=== PATIENT | male | born 1935 | race Caucasian/White ===

== ENCOUNTER 2017-07-30 12:34 | Inpatient (IN) | payer OTHER, MEDICARE ==
[2017-07-30] MEDS ORDERED: LR 1,000 ML IV ONE (12:50)
[2017-07-30] MEDS ORDERED: ceFAZolin 1 GM/5 ML SYR ONE (13:27)
[2017-07-30] MEDS ORDERED: DEXAMETHASONE 4 MG/ML VIAL IVP ONE (13:38)
[2017-07-30] MEDS ORDERED: GABAPENTIN 300 MG CAP PO ONE (13:38)
[2017-07-30] MEDS ORDERED: ROPIVACAINE 0.2% 80 MG, EPINEPHrine 0.2 MG, KETOROLAC TROMETHAMINE 30 MG in SYRINGE 0 ML IU ONE (13:38)
[2017-07-30] MEDS ORDERED: ceFAZolin 2 GM/SWFI 2 GM/20 ML SYR IVP ONE (13:38)
[2017-07-30] MEDS ORDERED: NS IV ONE (13:38)
[2017-07-30] MEDS ORDERED: FAMOTIDINE 20 MG TAB PO ONE (13:38)
[2017-07-30] MEDS ORDERED: POVIDONE-IODINE 20 ML in SODIUM CL IRRIG SOLUTION 500 ML IRR ONE (13:38)
[2017-07-30] MEDS ORDERED: ACETAMINOPHEN 325 MG TAB PO ONE (13:38)
[2017-07-30] MEDS ORDERED: ONDANSETRON 4 MG/2 ML VIAL IVP ONE (13:38)
[2017-07-30] MEDS ORDERED: TRANEXAMIC ACID IV ONE (13:38)
--- NOTE | 2017-07-30 14:11 | PDHPUP ---
History & Physical Update H&P update statement: This history and physical update is based on an assessment of the patient which was completed after admission or registration (within 24 hours), but prior to the surgery/procedure. H&P update: H&P reviewed & patient examined, no change in patient's condition since H&P completed
[2017-07-30] MEDS ORDERED: MIDAZOLAM 2 MG/2 ML VIAL IVP ONE (14:17)
--- NOTE | 2017-07-30 14:19 | PDANEPAE ---
ANE History of Present Illness RA s/f L KAMERON ANE Past Medical History - Cardiovascular History Hx Hypertension: Yes Hx Arrhythmias: No Hx Chest Pain: No Hx Coronary Artery / Peripheral Vascular Disease: No Hx CHF / Valvular Disease: No Hx Palpitations: No Cardiovascular History Comment: HYPERLIPIDEMIA - Pulmonary History Hx COPD: No Hx Asthma/Reactive Airway Disease: No Hx Recent Upper Respiratory Infection: No Hx Oxygen in Use at Home: No Hx Sleep Apnea: No Sleep Apnea Screening Result - Last Documented: Negative - Neurologic History Hx Cerebrovascular Accident: No Hx Seizures: No Hx Dementia: No Neurologic History Comment: TIA X2 FOLLOWING AFTER PREVIOUS SURGERY - Endocrine History Hx Diabetes: Yes Endocrine History Comment: PREDIAB - METFORMIN - Renal History Hx Renal Disorders: No - Liver History Hx Hepatic Disorders: No - Neurological & Psychiatric Hx Hx Neurological and Psychiatric Disorders: No - Cancer History Hx Cancer: Yes Cancer History Comment: ANAL CANCER. COLOSTOMY - Congenital Disorder History Hx Congenital Disorders: No - GI History Hx Gastrointestinal Disorders: No - Other Health History Other Health History: NEG - Chronic Pain History Chronic Pain: Yes (CHARCOT FOOT) - Surgical History Prior Surgeries: MALIKA TKA. R KAMERON. R SHOULDER REPLACEMENT. COLOSTOMY - ANAL CANCER ANE Review of Systems Review of Systems: - Exercise capacity METS (RN): 2 METS ANE Patient History - Allergies Allergies/Adverse Reactions: No Known Allergies Allergy (Unverified 07/25/10 21:50) - Home Medications Home Medications: Acetaminophen [Tylenol ES 500 mg (*)] 1,000 mg PO TID 07/30/17 [Last Taken 07/29] Allopurinol [Allopurinol 300 MG (RX)] 150 mg PO HS 07/30/17 [Last Taken 07/29/17 ] Aspirin [Aspirin 81mg (*)] 81 mg PO DAILY 07/30/17 [Last Taken 07/24/17] Atorvastatin Calcium [Lipitor 40 mg (*)] 40 mg PO HS 07/30/17 [Last Taken ] C,E,Zinc,Copper 11/Bdwcy0n/Lut [Ocuvite Adult 50 Plus Softgel] 1 each PO DAILY 07/30/17 [Last Taken 07/28/17] Cholecalciferol Vit D3 [Vitamin D3 (*)] 2,000 units PO DAILY 07/30/17 [Last Taken 07/28/17] Furosemide [Lasix 20 MG (*)] 20 mg PO DAILY 07/30/17 [Last Taken 07/29/17] Herbals/Supplements -Info Only 1 ea PO DAILY 07/30/17 [Last Taken Unknown] Lisinopril [Zestril 10 mg (*)] 30 mg PO DAILY 07/30/17 [Last Taken 07/29/17] Loperamide HCl [Imodium 2 mg (*)] 2 mg PO PRN PRN 07/30/17 [Last Taken Unknown] Metoprolol Succinate Xr [Toprol Xl 50 mg (*)] 50 mg PO DAILY 07/30/17 [Last Taken 07/30/17] Multivitamins [Multivitamin (*)] 1 each PO DAILY 07/30/17 [Last Taken 07/29/17] [place]-3 Fatty Acids [Fish Oil 1000 mg (*)] 1,000 mg PO DAILY 07/30/17 [Last Taken 07/24/17] Ondansetron Odt [Zofran Odt 4 mg (*)] 4 mg PO Q4 PRN 07/30/17 [Last Taken Unknown] Potassium Cl [Klor-Con 20 meq (*)] 20 meq PO BID 07/30/17 [Last Taken 07/29/17] celeCOXIB [Celebrex (*)] 200 mg PO HS 07/30/17 [Last Taken 07/29/17] metFORMIN HCL [Metformin HCl] 500 mg PO BID 07/30/17 [Last Taken 07/29/17] traMADol HCL [Tramadol HCl] 50 mg PO BID 07/30/17 [Last Taken 07/29/17] - NPO status NPO Since - Liquids (Date): 07/30/17 NPO Since - Liquids (Time): 09:00 NPO Since - Solids (Date): 07/29/17 NPO Since - Solids (Time): 20:00 - Smoking Hx Smoking Status: Never smoked ANE Labs/Vital Signs - Labs - CBC WBC: reviewed - Vital Signs Height: 177.8 cm Weight: 79.379 kg ANE Physical Exam - Airway Neck exam: decreased ROM Mallampati Score: Class 2 Mouth exam: small mouth opening - Pulmonary Pulmonary: no respiratory distress - Cardiovascular Cardiovascular: regular rate and rhythym - ASA Status ASA Status: III ANE Anesthesia Plan Anesthesia Plan: GA w LMA (R/B/A explained and pt. agrees to proceed), spinal
[2017-07-30] MEDS ORDERED: fentaNYL 100 MCG/2 ML INJ ONE (14:33)
[2017-07-30] MEDS ORDERED: PROPOFOL/EMULSION 500 MG/50 ML BOTTLE IV ONE (14:33)
[2017-07-30] MEDS ORDERED: LIDOCAINE 2% JELLY 5 ML TUBE ONE (14:50)
[2017-07-30] MEDS ORDERED: MEPERIDINE 25 MG/ML SYR IVP PRN (16:31)
[2017-07-30] MEDS ORDERED: ALBUTEROL 3 ML DEYVIAL IH PRN (16:31)
[2017-07-30] MEDS ORDERED: NALOXONE HCL 0.4 MG/ML INJ IVP PRN (16:31)
[2017-07-30] MEDS ORDERED: LR 500 ML IV PRN (16:31)
[2017-07-30] MEDS ORDERED: ONDANSETRON 4 MG/2 ML VIAL IVP PRN ×2 (16:31→16:47)
[2017-07-30] MEDS ORDERED: METOCLOPRAMIDE 10 MG/2 ML VIAL IVP PRN ×2 (16:31→16:47)
[2017-07-30] MEDS ORDERED: ACETAMINOPHEN 500 MG TAB PO PRN (16:31)
[2017-07-30] MEDS ORDERED: HYDROCODONE/APAP 5/325 TAB PO PRN (16:31)
[2017-07-30] MEDS ORDERED: LABETALOL HCL 5 MG/ML 20 ML MDV IVP PRN (16:31)
[2017-07-30] MEDS ORDERED: PROMETHAZINE HCL 25 MG/ML INJ IVP PRN ×2 (16:31→16:47)
[2017-07-30] MEDS ORDERED: DEXAMETHASONE 4 MG/ML VIAL IVP PRN (16:31)
[2017-07-30] MEDS ORDERED: fentaNYL 100 MCG/2 ML INJ IVP PRN (16:31)
[2017-07-30] MEDS ORDERED: PHENYLEPHRINE HCL 100 MCG/ML SYR IVP PRN (16:31)
[2017-07-30] MEDS ORDERED: OXYCODONE/APAP 5/325 TAB PO PRN (16:31)
[2017-07-30] MEDS ORDERED: ONDANSETRON 4 MG/2 ML VIAL ONE (16:34)
--- NOTE | 2017-07-30 16:35 | POSTOPPROG ---
Post Op Note Date of Operation: 07/30/17 Surgeon: Derrell Newby Schedule Manager: Vnaessa Anesthesiologist: Dr. Von Mercedes Anesthesia: GET(General Endotracheal) Post-op Diagnosis: Left hip severe arthritis Procedure: Hip arthroplasty Inf/Abcess present in the surg proc area at time of surgery?: No EBL: [id number]
[2017-07-30] MEDS ORDERED: LACTULOSE 20 GM/30 ML UDCUP PO PRN (16:47)
[2017-07-30] MEDS ORDERED: BISACODYL 10 MG SUPP PR PRN (16:47)
[2017-07-30] MEDS ORDERED: traMADol 50 MG TAB PO PRN (16:47)
[2017-07-30] MEDS ORDERED: POLYETHYLENE GLYCOL 3350 17 GM PKT PO PRN (16:47)
[2017-07-30] MEDS ORDERED: TEMAZEPAM 15 MG CAP PO PRN (16:47)
[2017-07-30] MEDS ORDERED: ONDANSETRON DISINTEGRATING 4 MG TAB PO PRN (16:47)
[2017-07-30] MEDS ORDERED: diphenhydrAMINE 25 MG CAP PO PRN (16:47)
[2017-07-30] MEDS ORDERED: MAGNESIUM HYDROXIDE 30 ML UDCUP PO PRN (16:47)
[2017-07-30] MEDS ORDERED: PROMETHAZINE HCL 25 MG SUPPR PR PRN (16:47)
[2017-07-30] MEDS ORDERED: oxyCODONE IR 5 MG TAB PO PRN (16:47)
[2017-07-30] MEDS ORDERED: KETOROLAC 30 MG/1 ML SDV IVP PRN (16:47)
[2017-07-30] MEDS ORDERED: NS 500 ML IV PRN (16:47)
[2017-07-30] MEDS ORDERED: CYCLOBENZAPRINE 10 MG TAB PO PRN (16:47)
[2017-07-30] MEDS ORDERED: DIPHENOXYLATE/ATROPINE LOMOTIL 1 TAB PO PRN (16:47)
[2017-07-30] MEDS ORDERED: LR 1,000 ML IV SCH (17:00)
--- NOTE | 2017-07-30 17:16 | GOP ---
[f rep st] OPERATIVE REPORT DATE OF OPERATION: 07/30/2017 SURGEON: Derrell Newby MD RN CARE TRANSITION: Toby Shore and James Kramer. ANESTHESIA: General anesthesia by Dr. Von Mercedes. PREOPERATIVE DIAGNOSIS: Left hip degenerative arthritis/possible old femoral neck fracture. POSTOPERATIVE DIAGNOSIS: Left hip degenerative arthritis/possible old femoral neck fracture. PROCEDURE PERFORMED: Left total hip arthroplasty, ceramic femoral head on highly cross-linked polyet hylene cup liner. FINDINGS: DESCRIPTION OF PROCEDURE: The patient was given 2 g of preoperative IV Ancef within 60 minutes of barrientos rgery. He also received IV tranexamic acid at a dose of 20 mg/kg. He was placed on the operating ro om table and given general anesthesia by Dr. Mercedes. A Gtz catheter was not used. He wore a CARLIE st ocking and SCD on the nonoperative leg. He was rolled to the right lateral decubitus position. The position was secured with the pegboard table attachment. He had a left lower quadrant colostomy and colostomy bag. He also had a large left lower quadrant ventral abdominal hernia. His perineum and t he colostomy were isolated with plastic adhesive drapes. I had to make special modifications in the draping in order to accommodate the colostomy and the large ventral abdominal hernia. His left lower extremity and hip were draped free using sterile sheets, stockinette, and Ioban plastic drapes. The World Health Organization time-out was performed to verify the correct surgical side and site, an d the correct patient identity. The [place] time-out was also performed. I made a 5-inch straight oblique posterolateral hip skin incision. He was very thin and had a thin l deidre of subcutaneous fat. Subcutaneous tissues were sharply divided and hemostasis was obtained usin g electrocautery. The fascia justine was identified and split along the axis of its fibers. I curved p osteriorly and proximally, and split the fascia of the gluteus cici and bluntly split the muscle f ibers in line with their orientation. The Charnley self-retaining retractor was inserted. His sciat ic nerve was located, partially exposed, and protected throughout the procedure. The external rotato rs and the posterior hip capsule were divided as separate layers at the base of the femoral neck, tag ged, and reflected posteriorly. A smooth 8-inch Steinmann pin was inserted vertically into the ilium , superior to the acetabulum. A 1/8-inch drill bit was inserted vertically into the greater trochant er and parallel to the first pin. The distance between the two was measured for leg length reference . The hip was dislocated posteriorly. He had no remaining femoral head left. He had ground the fem oral head down to the subcapital portion of his femoral neck. I osteotomized the femoral neck at the appropriate level and inclination. I was careful to preserve all the posterior capsule and most of the anterior capsule. The remnant of his damaged labrum was excised. The femur was prepared first. This allowed me to dressage judge the amount of natural femoral neck anteversio n. He only had about 10 degrees of natural femoral neck anteversion. The canal was opened laterally with a box chisel. I used the power reamer and then hand broached up to a size 8. I used the Accol sherrie II stem with a standard offset in size 8 broach as a trial stem. I was careful to lateralize sherrie quately. Appropriate retractors were inserted to expose the acetabulum. There was a lot of ground up bone med ial in the acetabulum. There was a small remaining fragment of his femoral head which was about 4 cm long and perhaps 1.5 cm in width at its widest diameter. His inferior capsule was severely contract ed. Without his femoral head, the whole proximal femur had shortened by about 25 mm. His acetabulum was reamed sequentially up to 57 mm. I selected a 58 mm Kennerdell Tritanium cluster hole hemispherica l shell. This was tapped securely into place in the proper degree of inclination anteversion. I use d the remnant of his transverse acetabular ligament and other acetabular bony landmarks to help me pr operly orient the cup. 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 I inserted 3 screws into the ilium through the acetabular shell. Screw fixation was excellent. I performed a series of trial reductions to determine length and stability. I took an intraoperative cross-table AP pelvis x-ray. The x-ray showed good position of the acetabular component and good si zing and position of the femoral component. His leg lengths were close to equal. The 0 degree Yovani X3 highly cross-linked polyethylene liner was inserted and tapped securely into place. Prior to insertion, I inserted and tightened a metal dome hole cap. I then selected the Stry ker Accolade II stem in a size 8 with standard offset. This was inserted press-fit and was very tigh t. I did one final trial reduction and confirmed that the 0 neck length with the 36 mm head was the proper combination. The Yovani Biolox Delta ceramic head with an outside diameter 36 mm and a neck length of 0 mm was tapped securely onto the clean trunnion. The acetabulum was irrigated and cleaned . The hip was reduced one final time. He had excellent anterior and posterior stability and an appr opriate amount of lengthening. 40 mL of the joint anesthetic cocktail were injected into the capsule, the deep musculature, and the subcutaneous tissues along the skin edges. The joint was thoroughly irrigated one final time with a dilute Betadine solution. His sciatic nerve was reinspected and looked unharmed. It did not look li ke it was on excessive tension. The external rotators and the posterior hip capsule were repaired in separate layers with #2 FiberWire sutures through drill holes in the greater trochanter. This provi ded a very strong posterior capsular and external rotator repair. The fascia justine was closed first w ith two [id number] #2 FiberWire sutures followed by a running #2 barbed Ethicon Stratafix PDO barrientos ture. Subcutaneous tissues were closed with a running 0 barbed Ethicon Stratafix Monoderm suture. T he skin was closed with a running 3-0 barbed Ethicon Stratafix Monoderm subcuticular suture. The ski n edges were reapproximated and sealed with Dermabond glue. The wound was covered with a large Mepil ex waterproof dressing. A long-leg CARLIE stocking and SCD were applied to his left lower extremity. An abduction pillow was pl aced between the knees. He was awakened from anesthesia and rolled to the supine position on his [facility] gurney. He was taken to PACU in satisfactory condition. There were no recognized intraoperati ve complications. The estimated blood loss was about 500 mL. Sponge and needle count were correct on 2 occasions. I used a Kennerdell Tritanium hemispherical cluster hole acetabular shell with an outside diameter of 58 mm. The liner was a Kennerdell X3 0-degree highly cross-linked liner with an inside diameter of 36 mm. There were 3 supplemental fixation screws in the acetabulum. The femoral component was a standard offset Accolade II stem in a size 8 and press-fit. The femoral head was a Yovani Biolox Delta ceram ic head with a 0 neck length and a 36 mm outside diameter. Toby Shore and James Kramer acted as surgical assistants. Their assistance was a medical necess ity for safe completion of the procedure. /[id number]/MODL
[2017-07-30] MEDS: ceFAZolin 2 GM/SWFI 2 GM/20 ML SYR IVP SCH ×3 (18:08→21:20)
--- NOTE | 2017-07-30 18:15 | POSTANESTH ---
Post Anesthetic Evaluation Cardiovascular Status: Normal, Stable Respiratory Status: Normal, Stable Level of Consciousness/Mental Status: Can Participate in Eval Pain Control: Adequate, Prn Tx Ordered Nausea/Vomiting Control: Adequate, Prn Tx Ordered Complications Possibly Related to Anesthesia: None Noted
[2017-07-30] MEDS: ACETAMINOPHEN 325 MG TAB PO SCH ×2 (19:35→23:08)
[2017-07-30] MEDS ORDERED: ASPIRIN 325 MG TAB PO SCH (21:00)
[2017-07-30] MEDS: ATORVASTATIN CALCIUM 40 MG TAB PO SCH (21:20)
[2017-07-30] MEDS: TRANEXAMIC ACID 650 MG TAB PO SCH (21:20)
[2017-07-30] MEDS: ALLOPURINOL 300 MG TAB PO SCH (21:21)
[2017-07-30] MEDS: SENNOSIDES/DOCUSATE SODIUM TAB PO SCH (21:21)
[2017-07-30] MEDS: POTASSIUM CL 20 MEQ TAB PO SCH (21:21)
[2017-07-30] MEDS: FAMOTIDINE 20 MG TAB PO SCH (21:21)
[2017-07-30] MEDS: metFORMIN HCL 500 MG TAB PO SCH (21:22)
[2017-07-30] MEDS ORDERED: ceFAZolin 2 GM/DEXTROSE 100 ML IV SCH (22:00)
[2017-07-31] MEDS: ACETAMINOPHEN 325 MG TAB PO SCH ×3 (05:22→18:00)
[2017-07-31] MEDS: TRANEXAMIC ACID 650 MG TAB PO SCH ×2 (05:22→14:09)
[2017-07-31] MEDS: ceFAZolin 2 GM/SWFI 2 GM/20 ML SYR IVP SCH (05:23)
--- NOTE | 2017-07-31 07:17 | SOAPPROG ---
SOAP Progress Note Assessment/Plan: Assessment: Afebrile. Awake and alert. Mild hypotension. H/H is adequate. Dsg is dry. Sciatic nerve intact. Films look good. Plan:Up with PT. Rehab will be slow. He hasn't walked in 3 or 4 weeks. SNF transfer. 07/31/17 07:13 Objective: Vital Signs Temp Pulse Resp BP Pulse Ox 36.3 C 58 L 16 91/43 L 100 07/31/17 07:08 07/31/17 07:08 07/31/17 07:08 07/31/17 07:08 07/31/17 07:08 Laboratory Results 07/31/17 04:19 07/30/17 07/31/17 08/01/17 05:59 05:59 05:59 Intake Total 2535 Output Total 700 Balance 1835 ICD10 Worksheet Patient Problems: Problems Problem Status Onset Osteoarthritis of left hip Acute
--- NOTE | 2017-07-31 07:22 | SOAPPROG ---
SOAP Progress Note Assessment/Plan: Assessment: Afebrile. Awake and alert. Mild hypotension. H/H is adequate. Dsg is dry. Sciatic nerve intact. Films look good. Plan:Up with PT. Rehab will be slow. He hasn't walked in 3 or 4 weeks. SNF transfer. 07/31/17 07:13 07/31/17 07:22 Pt will be slow to mobilize. He is higher risk for DVT. Will treat with Lovenox for 21 days. Objective: Vital Signs Temp Pulse Resp BP Pulse Ox 36.3 C 58 L 16 91/43 L 100 07/31/17 07:08 07/31/17 07:08 07/31/17 07:08 07/31/17 07:08 07/31/17 07:08 Laboratory Results 07/31/17 04:19 07/30/17 07/31/17 08/01/17 05:59 05:59 05:59 Intake Total 2535 Output Total 700 Balance 1835 ICD10 Worksheet Patient Problems: Problems Problem Status Onset Osteoarthritis of left hip Acute
--- NOTE | 2017-07-31 07:22 | PDIAF ---
<Eb Shore - Last Filed: 07/31/17 07:20> - Diagnosis Diagnosis: left hip OA Code Status: Full Code - Medication Management Discharge Medications: Medications to Continue on Transfer Allopurinol [Allopurinol 300 MG (RX)] 150 mg PO HS 07/30/17 [Last Taken 07/29/17 ] Atorvastatin Calcium [Lipitor 40 mg (*)] 40 mg PO HS 07/30/17 [Last Taken ] C,E,Zinc,Copper 11/Whlwk2a/Lut [Ocuvite Adult 50 Plus Softgel] 1 each PO DAILY 07/30/17 [Last Taken 07/28/17] Cholecalciferol Vit D3 [Vitamin D3 (*)] 2,000 units PO DAILY 07/30/17 [Last Taken 07/28/17] Furosemide [Lasix 20 MG (*)] 20 mg PO DAILY 07/30/17 [Last Taken 07/29/17] Herbals/Supplements -Info Only 1 ea PO DAILY 07/30/17 [Last Taken Unknown] Lisinopril [Zestril 10 mg (*)] 30 mg PO DAILY 07/30/17 [Last Taken 07/29/17] Loperamide HCl [Imodium 2 mg (*)] 2 mg PO PRN PRN 07/30/17 [Last Taken Unknown] Metoprolol Succinate Xr [Toprol Xl 50 mg (*)] 50 mg PO DAILY 07/30/17 [Last Taken 07/30/17] Multivitamins [Multivitamin (*)] 1 each PO DAILY 07/30/17 [Last Taken 07/29/17] [place]-3 Fatty Acids [Fish Oil 1000 mg (*)] 1,000 mg PO DAILY 07/30/17 [Last Taken 07/24/17] Potassium Cl [Klor-Con 20 meq (*)] 20 meq PO BID 07/30/17 [Last Taken 07/29/17] metFORMIN HCL [Metformin HCl] 500 mg PO BID 07/30/17 [Last Taken 07/29/17] Acetaminophen [Tylenol 325mg (*)] 650 mg PO Q6HRS tab 07/31/17 [Last Taken Unknown] Enoxaparin [Lovenox 40 MG (*)] 40 mg SC DAILY 21 Days syr 07/31/17 [Last Taken Unknown] Ondansetron Odt [Zofran Odt 4 mg (*)] 4 mg PO Q4HRS PRN tab 07/31/17 [Last Taken Unknown] celeCOXIB [Celebrex (*)] 200 mg PO DAILY #21 cap 07/31/17 [Last Taken Unknown] traMADol [Ultram 50 mg (*)] 50 mg PO Q6HRS PRN tab 07/31/17 [Last Taken Unknown ] Discharge Medications: Refer to the Discharge Home Medication list for PRN reason. - Orders Services needed: Physical Therapy, Occupational Therapy Isolation Type: None Diet Recommendation: no restrictions on diet Diet Texture: Regular Texture Diet Gtz: Not applicable Jourdan Stockings Discontinue Date: 1 week Wound Care Instructions: keep clean and dry. You may shower. Activity/Weight Bearing Restrictions: as tolerated. - Follow Up Care Current Providers and Referrals: QUEENIE LOVING [Primary Care Provider] - Derrell Newby MD [Medical Doctor] - 08/18/17 <Derrell Newby - Last Filed: 08/02/17 07:54> - Medication Management Discharge Medications: Refer to the Discharge Home Medication list for PRN reason.
--- NOTE | 2017-07-31 07:38 | PDIAF ---
- Diagnosis Diagnosis: left hip OA Code Status: Full Code - Medication Management Discharge Medications: Medications to Continue on Transfer Allopurinol [Allopurinol 300 MG (RX)] 150 mg PO HS 07/30/17 [Last Taken 07/29/17 ] Atorvastatin Calcium [Lipitor 40 mg (*)] 40 mg PO HS 07/30/17 [Last Taken ] C,E,Zinc,Copper 11/Zajzi9q/Lut [Ocuvite Adult 50 Plus Softgel] 1 each PO DAILY 07/30/17 [Last Taken 07/28/17] Cholecalciferol Vit D3 [Vitamin D3 (*)] 2,000 units PO DAILY 07/30/17 [Last Taken 07/28/17] Furosemide [Lasix 20 MG (*)] 20 mg PO DAILY 07/30/17 [Last Taken 07/29/17] Herbals/Supplements -Info Only 1 ea PO DAILY 07/30/17 [Last Taken Unknown] Lisinopril [Zestril 10 mg (*)] 30 mg PO DAILY 07/30/17 [Last Taken 07/29/17] Loperamide HCl [Imodium 2 mg (*)] 2 mg PO PRN PRN 07/30/17 [Last Taken Unknown] Metoprolol Succinate Xr [Toprol Xl 50 mg (*)] 50 mg PO DAILY 07/30/17 [Last Taken 07/30/17] Multivitamins [Multivitamin (*)] 1 each PO DAILY 07/30/17 [Last Taken 07/29/17] [place]-3 Fatty Acids [Fish Oil 1000 mg (*)] 1,000 mg PO DAILY 07/30/17 [Last Taken 07/24/17] Potassium Cl [Klor-Con 20 meq (*)] 20 meq PO BID 07/30/17 [Last Taken 07/29/17] metFORMIN HCL [Metformin HCl] 500 mg PO BID 07/30/17 [Last Taken 07/29/17] Acetaminophen [Tylenol 325mg (*)] 650 mg PO Q6HRS tab 07/31/17 [Last Taken Unknown] Aspirin [Aspirin 325 mg (*)] 325 mg PO DAILY #21 tab 07/31/17 [Last Taken Unknown] Enoxaparin [Lovenox 40 MG (*)] 40 mg SC DAILY 21 Days syr 07/31/17 [Last Taken Unknown] Ondansetron Odt [Zofran Odt 4 mg (*)] 4 mg PO Q4HRS PRN tab 07/31/17 [Last Taken Unknown] celeCOXIB [Celebrex (*)] 200 mg PO DAILY #21 cap 07/31/17 [Last Taken Unknown] oxyCODONE IR [Oxycodone Ir (*)] 5 - 10 mg PO Q3HRS PRN tab 07/31/17 [Last Taken Unknown] traMADol [Ultram 50 mg (*)] 50 mg PO Q6HRS PRN tab 07/31/17 [Last Taken Unknown ] Discharge Medications: Refer to the Discharge Home Medication list for PRN reason. - Orders Services needed: Physical Therapy, Occupational Therapy Isolation Type: None Diet Recommendation: no restrictions on diet Diet Texture: Regular Texture Diet Gtz: Not applicable Jourdan Stockings Discontinue Date: 1 week Wound Care Instructions: keep clean and dry. You may shower. Activity/Weight Bearing Restrictions: as tolerated. Additional: Lovenox daily for DVT prophylaxis. - Follow Up Care Current Providers and Referrals: QUEENIE LOVING [Primary Care Provider] - Derrell Newby MD [Medical Doctor] - 08/18/17
[2017-07-31] MEDS ORDERED: METOPROLOL SUCCINATE XR 50 MG TAB PO SCH (09:00)
[2017-07-31] MEDS ORDERED: LISINOPRIL 10 MG TAB PO SCH (09:00)
[2017-07-31] MEDS ORDERED: FUROSEMIDE 20 MG TAB PO SCH (09:00)
--- NOTE | 2017-07-31 09:04 | GDS ---
[f rep st] DISCHARGE SUMMARY ADMISSION DIAGNOSIS: Left hip severe degenerative arthritis. DISCHARGE DIAGNOSIS: Left hip severe degenerative arthritis. OPERATION PERFORMED: On 07/30/2017, a left total hip arthroplasty. POSTOPERATIVE COMPLICATIONS: None. CONDITION ON DISCHARGE: Improved. DESCRIPTION OF HOSPITAL COURSE: The patient was admitted to the hospital on the morning of surgery. The same day, under general anesthesia, he underwent a left total hip arthroplasty. Postoperatively, he was treated with multimodal DVT prophylaxis, including Lovenox. He was seen by Physical Therapy. His progress with mobilization was slow. He has not been walking for the last 3 or 4 weeks, and overall he is quite weak. On the 1st postoperative day, his hemoglobin and hematocrit were 11.9 and 35.5. He did not require transfusion. To meet Medicare requirements, he had to stay 3 nights. He received additional PT. He was walking in [place] by time of discharge. DISPOSITION: The patient is discharged to a skilled rehab facility. I anticipate a long rehabilitation. He may progress to full weightbearing on the left as tolerated. Use an abduction pillow in bed for 3 weeks. Use CARLIE stockings for 1 week. Continue Lovenox 40 mgs daily for 21 days. I will see him back in the office on 08/18/2017. If there any problems, he is to call me at the office. /[id number]/MODL MTDD
--- NOTE | 2017-07-31 09:45 | ASMTCMCOM ---
CM Note CM Note Notes: Pt came to [facility] from [facility] where he was private paying since 07/20/17. Referral sent to [facility] in [place]. Pt s/p total hip, will d/c [facility]. Date Signed: 07/31/2017 09:45 AM Electronically Signed By:LILIBETH Olson
[2017-07-31] MEDS: POTASSIUM CL 20 MEQ TAB PO SCH ×2 (09:56→20:25)
[2017-07-31] MEDS: FAMOTIDINE 20 MG TAB PO SCH ×2 (09:56→20:25)
[2017-07-31] MEDS: ENOXAPARIN 40 MG/0.4 ML SYR SC SCH (10:00)
[2017-07-31] MEDS: metFORMIN HCL 500 MG TAB PO SCH ×2 (10:01→20:26)
[2017-07-31] MEDS: SENNOSIDES/DOCUSATE SODIUM TAB PO SCH ×2 (10:02→20:26)
[2017-07-31] MEDS: ATORVASTATIN CALCIUM 40 MG TAB PO SCH (20:24)
[2017-07-31] MEDS: ALLOPURINOL 300 MG TAB PO SCH (20:25)
[2017-08-01] MEDS: ACETAMINOPHEN 325 MG TAB PO SCH ×4 (02:15→17:59)
--- NOTE | 2017-08-01 07:24 | SOAPPROG ---
SOAP Progress Note Assessment/Plan: Assessment: Afebrile. Awake and alert. Mild hypotension. H/H is adequate. Dsg is dry. Sciatic nerve intact. Films look good. Plan:Up with PT. Rehab will be slow. He hasn't walked in 3 or 4 weeks. SNF transfer. 07/31/17 07:13 07/31/17 07:22 Pt will be slow to mobilize. He is higher risk for DVT. Will treat with Lovenox for 21 days. 08/01/17 07:21 Aferile. Awake and alert. Has been up in chair and taking a few steps around the room. Mild pain. Dsg is dry. H/H is stable and OK. On lovenox. BP was low yesterday and I held his BP meds. BP better today. Needs another night in hospital to be eligible for SNF. P: DC Sat. Objective: Vital Signs Temp Pulse Resp BP Pulse Ox 36.8 C 73 16 115/66 97 08/01/17 04:00 08/01/17 04:00 08/01/17 04:00 08/01/17 04:00 08/01/17 04:00 Laboratory Results 08/01/17 04:18 07/31/17 08/01/17 08/02/17 05:59 05:59 05:59 Intake Total 2535 300 Output Total 700 300 Balance 1835 0 ICD10 Worksheet Patient Problems: Problems Problem Status Onset Osteoarthritis of left hip Acute chronic disease [facility]/Transitonal care Acute
[2017-08-01] MEDS: POTASSIUM CL 20 MEQ TAB PO SCH ×2 (08:35→20:41)
[2017-08-01] MEDS: SENNOSIDES/DOCUSATE SODIUM TAB PO SCH ×2 (08:36→20:45)
[2017-08-01] MEDS: FAMOTIDINE 20 MG TAB PO SCH ×2 (08:37→20:41)
[2017-08-01] MEDS: ENOXAPARIN 40 MG/0.4 ML SYR SC SCH (08:37)
[2017-08-01] MEDS: metFORMIN HCL 500 MG TAB PO SCH ×2 (08:39→20:45)
--- NOTE | 2017-08-01 15:06 | ASMTCMCOM ---
CM Note CM Note Notes: Plan remains d/c to [facility] tomorrow. Pt and family updated. [facility] can arrange wc van transport once d/c orders are in. Date Signed: 08/01/2017 03:05 PM Electronically Signed By:LILIBETH Olson
[2017-08-01] MEDS: ATORVASTATIN CALCIUM 40 MG TAB PO SCH (20:41)
[2017-08-01] MEDS: ALLOPURINOL 300 MG TAB PO SCH (20:44)
[2017-08-02 00:05] VITALS: RESP 18
[2017-08-02] MEDS: ACETAMINOPHEN 325 MG TAB PO SCH ×2 (00:09→05:40)
--- NOTE | 2017-08-02 07:46 | SOAPPROG ---
SOAP Progress Note Assessment/Plan: Assessment: Afebrile. Awake and alert. Mild hypotension. H/H is adequate. Dsg is dry. Sciatic nerve intact. Films look good. Plan:Up with PT. Rehab will be slow. He hasn't walked in 3 or 4 weeks. SNF transfer. 07/31/17 07:13 07/31/17 07:22 Pt will be slow to mobilize. He is higher risk for DVT. Will treat with Lovenox for 21 days. 08/01/17 07:21 Aferile. Awake and alert. Has been up in chair and taking a few steps around the room. Mild pain. Dsg is dry. H/H is stable and OK. On lovenox. BP was low yesterday and I held his BP meds. BP better today. Needs another night in hospital to be eligible for SNF. P: DC 08/02/17 07:46 Afebrile. No pain. Up and walking in [place]. Dsg is dry. Mild swelling. Transfer to SNF today. Objective: Vital Signs Temp Pulse Resp BP Pulse Ox 36.7 C 93 18 131/74 H 97 08/02/17 00:00 08/02/17 00:00 08/02/17 00:00 08/02/17 00:00 08/02/17 00:00 Laboratory Results 08/01/17 04:18 08/01/17 08/02/17 08/03/17 05:59 05:59 05:59 Intake Total 300 Output Total 300 1225 Balance 0 -1225 ICD10 Worksheet Patient Problems: Problems Problem Status Onset Osteoarthritis of left hip Acute chronic disease [facility]/Transitonal care Acute
[2017-08-02 08:21] VITALS: BP 126/99; PULSE 102; TEMP 97.6; O2SAT 91
[2017-08-02] MEDS: FAMOTIDINE 20 MG TAB PO SCH (10:15)
[2017-08-02] MEDS: metFORMIN HCL 500 MG TAB PO SCH (10:15)
[2017-08-02] MEDS: POTASSIUM CL 20 MEQ TAB PO SCH (10:15)
[2017-08-02] MEDS: ENOXAPARIN 40 MG/0.4 ML SYR SC SCH (10:15)
[2017-08-02] MEDS: SENNOSIDES/DOCUSATE SODIUM TAB PO SCH ×2 (10:16)
--- NOTE | 2017-08-02 10:33 | ASMTCMCOM ---
CM Note CM Note Notes: Chart reviewed . Patient medically cleared for discharge back to [facility] in [place]. Spoke to [facility] at [place] and they are ready to accept patient. They have arranged pickup for 11 am. Patient aware. RN aware. CM available should other needs arise. Date Signed: 08/02/2017 10:32 AM Electronically Signed By:Raeann Zavala RN
--- NOTE | 2017-08-02 13:34 | ASDISCHSUM ---
Discharge Information Plan Status:SNF Medically Cleared to Leave:08/01/2017 Discharge Date:08/02/2017 11:13 AM CM D/C Disposition: ADT D/C Disposition:Custodial Facility Projected Discharge Date:08/02/2017 11:00 AM Transportation at D/C:Wheelchair Van Discharge Delay Reason: Follow-Up Date:08/02/2017 11:00 AM Discharge Slot: Final Diagnosis: Placement Information Referral Type:*Snf/SNF Referral ID:[id number] Provider Name:[facility] Address 1:[address] [place] [address] Address 2: City:[place] Selection Factors: State:[place] Patient Contact Information Contact Name:PAYTON Relationship: Address:[address] City:[place] Alternate Phone: State/Zip Code:[place] [address] Email: Financial Information Financial Class:Medicare Primary Plan Desc:MEDICARE INPATIENT Primary Plan Number:[id number] Secondary Plan Desc:[employer]/MDR SUPPLEMENT Secondary Plan Number:[id number] Assessment Information [facility] CM Progress Note CM Note CM Note Notes: Pt came to [facility] from [facility] where he was private paying since 07/20/17. [facility]. Pt s/p total hip, will d/c [facility]. Date Signed: 07/31/2017 09:45 AM Electronically Signed By:LILIBETH Olson [facility] CM Progress Note CM Note CM Note Notes: Plan remains d/c to [facility] tomorrow. Pt and family updated. [facility] can arrange wc van transport once d/c orders are in. Date Signed: 08/01/2017 03:05 PM Electronically Signed By:LILIBETH Olson Case Management Discharge Plan Note Case Management Discharge Discharge Order Complete? Answers: Yes Patient to Obtain Answers: Other Notes: [facility] Medications Transportation Arranged Answers: Other Notes: wheelchair van Faxed Final Orders Answers: Yes Agency/Facility Transfer Answers: Yes Notes: [facility] Report Printed & Faxed to Receiving Agency Family Notified Answers: Yes Date Signed: 08/02/2017 09:22 AM Electronically Signed By:Raeann Zavala RN [facility] CM Progress Note CM Note CM Note Notes: Chart reviewed . Patient medically cleared for discharge back to [facility] in [place]. Spoke to Lakisha keyes at [place] and they are ready to accept patient. They have arranged pickup for 11 am. Patient aware. RN aware. CM available should other needs arise. Date Signed: 08/02/2017 10:32 AM Electronically Signed By:Raeann Zavala RN Intervention Information
== END 2017-08-02 11:13 | DRG 470 ==
LOC: F3N 12:34
PROVIDERS: ADMIT Orthopaedic Surgery; ATTEND Orthopaedic Surgery
PROC: 0SR904A Replacement of Right Hip Joint with Ceramic on Polyethylene Synthetic Substitute, Uncemented, Open Approach (ICD-10-PCS; principal; 2017-07-30 13:30)
DX: M16.11 Unilateral primary osteoarthritis, right hip (principal); Z93.3 Colostomy status; K43.9 Ventral hernia without obstruction or gangrene
CPT/HCPCS: 97116-GP; 97161-GP; 97166-GO; 97530-GP; 97535-GO; C1713; G8978-GP-CJ; G8978-GP-CL; G8979-GP-CJ; G8980-GP-CJ; G8987-GO-CK; G8988-GO-CI; J0171; J0690; J1100; J1650; J1885; J2250; J2270; J2370; J2405; J2704; J2795; J3010